=== PATIENT | male | born 1955 | race Caucasian/White ===

== ENCOUNTER 2019-01-09 09:58 | Emergency (ER) | payer OTHER ==
[~2019-01-09] VITALS: Ht 162.6 cm; Wt 88.9 kg
[2019-01-09 10:01] VITALS: BP 131/73
--- NOTE | 2019-01-09 10:12 | NUR ---
63 Y MALE BIB C/O FALL ON December. PT REPORTS FALLING GETTING OUT OF THE PROPOSAL [employer]ULTANT SIDE OF HIS CAR AND LANDING ON RT SIDE. BRUISE AROUND PT RT EYE, AND PT REPORTS PAIN IN RT FOREARM AND RT HAND. PT DENIES LOC OR N/V. PAIN 03/20. VSS AT THIS TIME. [id number]. BED IS DOWN, LOCKED, BED RAIL X 1, ERMD TO SEE PT. MEDHX:HTN
--- NOTE | 2019-01-09 10:15 | NUR ---
DR ABARCA AT BEDSIDE
--- NOTE | 2019-01-09 10:16 | NUR ---
+ROM, +CMS IN RT ARM AND RT HAND
[2019-01-09] MEDS ORDERED: KETOROLAC 60 MG/2 ML VIAL IM ONE (10:20)
--- NOTE | 2019-01-09 11:10 | NUR ---
SLING PLACED BY FAREED VASQUEZ. + RT RADIAL PULSE
[2019-01-09 11:11] VITALS: BP 134/74
--- NOTE | 2019-01-09 11:11 | NUR ---
Patient discharged with v/s stable. Written and verbal after care instructions given and explained. Patient alert, oriented and verbalized understanding of instructions. Ambulatory with steady gait. All questions addressed prior to discharge. ID band removed. Patient advised to follow up with PMD. Rx of MOTRIN given. Patient educated on indication of medication including possible reaction and side effects. Opportunity to ask questions provided and answered. PT HAS SLING ON RT ARM
== END 2019-01-09 11:11 | disposition home or self-care (01) ==
LOC: MED 09:58
DX: S40.021A Contusion of right upper arm, initial encounter (principal); W06.XXXA Fall from bed, initial encounter; Y93.89 Activity, other specified; Y92.89 Other specified places as the place of occurrence of the external cause; Y99.8 Other external cause status
CPT/HCPCS: 73020; 96372; 99283; J1885